=== PATIENT | female | born 1980 | race Asian ===

== ENCOUNTER 2018-12-20 20:29 | Outpatient (CLI) | payer OTHER | END 2018-12-20 20:50 | disposition home or self-care (01) | LOC: EEVIPCON 20:29 → LAB 20:29 | PROVIDERS: ATTEND Family Medicine | DX: Z34.90 Encounter for supervision of normal pregnancy, unspecified, unspecified trimester (principal) | CPT/HCPCS: 36415-UA; 84702-TC ==